=== PATIENT | female | born 1950 | race Caucasian/White ===

== ENCOUNTER 2018-10-24 13:53 | Day surgery (SDC) | payer OTHER ==
[~2018-10-24] VITALS: Ht 165.1 cm; Wt 70.4 kg
[2018-10-24] VITALS (7 sets, daily range): BP systolic 136–176; BP diastolic 70–89; PULSE 68–76; RESP 13–18; Ht 165.1 cm; Wt 70.4 kg
[2018-10-24] MEDS ORDERED: DILT30TA30 PO (14:57)
[2018-10-24] MEDS ORDERED: TIMO15DR15 BOTH EYES (14:57)
[2018-10-24] MEDS ORDERED: CARV6.2579 PO (14:57)
[2018-10-24] MEDS ORDERED: ATOR20TA65 PO (14:57)
[2018-10-24] MEDS ORDERED: BIMA2.5D BOTH EYES (14:57)
[2018-10-24] MEDS ORDERED: SOD CHLORIDE 0.9% 1,000 ML IV SCH ×2 (15:00→17:48)
[2018-10-24] MEDS ORDERED: LIDOCAINE 1% (MDV) 20 ML INJ ONE (17:07)
[2018-10-24] MEDS ORDERED: VERAPAMIL 5 MG INJ ONE (17:08)
[2018-10-24] MEDS ORDERED: NITROGLYCERIN (IC) 100 MCG/ML INJ ONE (17:08)
[2018-10-24] MEDS ORDERED: IODIXANOL LOCM 100 ML BTL ONE (17:08)
[2018-10-24] MEDS ORDERED: HEPARIN 1000 UNITS/ML 10 ML INJ ONE (17:08)
[2018-10-24] MEDS ORDERED: FENTAnyl 50 MCG/ML VIAL ONE (17:31)
[2018-10-24] MEDS ORDERED: MIDAZOLAM 1 MG/ML 2 ML INJ ONE (17:31)
--- NOTE | 2018-10-24 17:52 | OPR ---
Date/Time of Note Date/Time of Note DATE: 10/24/18 TIME: 17:50 Operative Report Procedure Date: Oct 24, 2018 Preoperative Diagnosis Chest pain Postoperative Diagnosis Non-obstructive coronary atherosclerosis Operation/Procedure Performed Left heart catheterization Surgeon see signature line [employer] Operator none Anesthesia Type: moderate sedation Estimated Blood Loss: minimal Transfusion none Specimen none Grafts/Implants none Complications none Pt Condition Post Procedure: stable Disposition: PACU Procedure Description DESCRIPTION OF PROCEDURE: The patient placed on nurse monitoring, pulse oximetry and supplemental oxygen as necessary. The right wrist was prepped and draped in a sterile fashion and infiltrated with 1% lidocaine. Via the Seldinger technique, the right radial artery was accessed. A 5-Pashto sheath was inserted and through this the right coronary catheter and left coronary catheter and pigtail were advanced into the right coronary artery and left coronary artery and the left ventricle. Placement confirmed by fluoroscopy and hemodynamics. CATHETERIZATION FINDINGS: 1. Left main: No significant disease. 2. LAD: Large caliber vessel with no significant disease. 3. Circumflex: Medium caliber vessel with no significant disease. 4. Obtuse marginal: Medium caliber vessel with no significant disease. 5. RCA: Large dominant vessel with proximal 20-30% plaque COMPLICATIONS: None. FINAL RESULTS: Non-obstructive coronary atherosclerosis RECOMMENDATIONS: Medical Management Discharge home HOLGER DOLAN Oct 24, 2018 17:52
--- NOTE | 2018-10-28 17:37 | RADRPT ---
Vent Rate: 69 bpm RR Interval: 0 msec W[place] Interval: 198 msec QRS Duration: 98 msec QT Interval: 392 msec QTC Interval: 420 msec P-R-T [place]: 47 - -3 - 111 degrees Normal sinus rhythm Left ventricular hypertrophy with repolarization abnormality Abnormal ECG Electronically Signed By: Con Perales
== END 2018-10-24 20:15 | disposition home or self-care (01) ==
LOC: CCL 13:53 → GIL 13:53 → SDS 13:53 → CCL 20:15
PROVIDERS: ATTEND Internal Medicine
DX: I25.10 Atherosclerotic heart disease of native coronary artery without angina pectoris (principal); E11.9 Type 2 diabetes mellitus without complications; I10 Essential (primary) hypertension
CPT/HCPCS: 80048; 85025; 85610; 93005; 93454; C1887; J1644; J2250; J3010; Q9967; Z7610